=== PATIENT | male | born 1965 | race Caucasian/White ===

== ENCOUNTER 2017-03-18 09:12 | Observation (INO) | payer OTHER ==
[~2017-03-18] VITALS: Ht 182.9 cm; Wt 102.9 kg
[~2017-03-18 09:12] MED LIST: CEPH500C3 PO; DICL-86 PO; TYLE3 PO; Z.0.NO CURRENT MEDS
[2017-03-18] MEDS ORDERED: ASPI-516 PO (10:05)
[2017-03-18] MEDS ORDERED: METO25TA3 PO (10:22)
[2017-03-18] MEDS ORDERED: ATOR40TA16 PO (10:25)
[2017-03-18] MEDS ORDERED: LISI-519 PO (10:25)
[2017-03-18] MEDS ORDERED: PRAS10TA PO (10:25)
[2017-03-18] MEDS ORDERED: METOPROLOL TARTRATE 25 MG TAB PO PRN (11:00)
[2017-03-18] MEDS ORDERED: LACTATED RINGER'S 1000 ML IV PRN (11:00)
[2017-03-18] MEDS ORDERED: POVIDONE IODINE 5% (ANTISEPSIS KIT) 4 APPLICATIONS EACH NARE PRN (11:00)
[2017-03-18] MEDS ORDERED: INSULIN HUMAN REGULAR 1,000 UNITS/10 ML VIAL SQ PRN (11:00)
[2017-03-18] MEDS ORDERED: CHLORHEXIDINE GLUCONATE 2 % 1 PACK (2 CLOTHS) TOPICAL PRN (11:00)
[2017-03-18] MEDS ORDERED: SODIUM CHLORID 0.9% 500 ML IV PRN (11:00)
[2017-03-18 11:08] LABS: AUTOMATED NEUTROPHIL # 3.9 TH/MM3 (1.8-7.7); BASOPHIL % 0.7 % (0.0-2.0); EOSINOPHIL # 0.1 TH/MM3 (0-0.4); EOSINOPHIL % 1.6 % (0.0-4.0); HEMATOCRIT 44.4 % (39.0-51.0); HEMO FLAGS DIFF FINAL; LYMPH % 29.7 % (9.0-44.0); LYMPHOCYTE # 1.9 TH/MM3 (1.0-4.8); MEAN CELL VOLUME 92.3 FL (80.0-100.0); MEAN CORPUSCULAR HGB CONC 34.6 % (32.0-36.0); PLATELET COUNT 168 TH/MM3 (150-450); RED BLOOD COUNT 4.82 MIL/MM3 (4.50-5.90); RED CELL DISTRIBUTION WIDTH 13.2 % (11.6-17.2); WHITE BLOOD COUNT 6.2 TH/MM3 (4.0-11.0)
[2017-03-18 11:17] LABS: APTT (PATIENT) 29.2 SEC (24.3-30.1); PROTHROMBIN TIME - PATIENT 10.7 SEC (9.8-11.6)
[2017-03-18 11:22] LABS: ALT (GPT) 31 U/L (12-78); ANION GAP 7 MEQ/L (5-15); AST (GOT) 17 U/L (15-37); BICARBONATE 27.3 MEQ/L (21.0-32.0); BLOOD UREA NITROGEN 14 MG/DL (7-18); CHLORIDE 107 MEQ/L (98-107); GLOMERULAR FILTRATION RATE 89 ML/MIN (>89); POTASSIUM 3.8 MEQ/L (3.5-5.1); SODIUM (NA) 141 MEQ/L (136-145)
[2017-03-18 11:24] LABS: ALKALINE PHOSPHATASE 100 U/L (45-117); TOTAL BILIRUBIN ADULT 0.4 MG/DL (0.2-1.0)
[2017-03-18] MEDS ORDERED: hydrALAZINE HCL 20 MG/ML VIAL IV ONE (12:00)
[2017-03-18] MEDS ORDERED: DEXAMETHASONE SOD PHOS 4 MG/ML VIAL IV ONE ×2 (12:00)
[2017-03-18] MEDS ORDERED: ceFAZolin INJ 1,000 MG VIAL IV ONE (12:00)
[2017-03-18] MEDS ORDERED: MIDAZOLAM HCL 2 MG/2 ML VIAL IV ONE ×2 (12:00)
[2017-03-18] MEDS ORDERED: ONDANSETRON HCL 4 MG/2 ML VIAL IV PUSH ONE ×2 (12:00)
[2017-03-18] MEDS ORDERED: MORPHINE SULFATE 4 MG/ML INJ IV ONE ×2 (12:00)
[2017-03-18] MEDS ORDERED: GLYCOPYRROLATE 1 MG/5 ML SYRINGE IV PUSH ONE ×2 (12:00)
[2017-03-18] MEDS ORDERED: LACTATED RINGER'S 1000 ML INJ 2,000 ML IV ONE (12:00)
[2017-03-18] MEDS ORDERED: ePHEDrine/NS 25 MG/5 ML SYR IV ONE ×2 (12:00)
[2017-03-18] MEDS ORDERED: NEOSTIGMINE 3 MG/3 ML SYR IV ONE ×2 (12:00)
[2017-03-18] MEDS ORDERED: LABETALOL HCL 100 MG/20 ML VIAL IV ONE (12:00)
[2017-03-18] MEDS ORDERED: LIDOCAINE HCL 1% PF 5 ML AMPULE OTHER ONE ×2 (12:00)
[2017-03-18] MEDS ORDERED: ROCURONIUM INJ 50 MG/5 ML VIAL IV ONE (12:00)
[2017-03-18] MEDS ORDERED: STERILE WATER FOR INJECTION 20 ML VIAL IV ONE (12:00)
[2017-03-18] MEDS ORDERED: PROPOFOL 200 MG/20 ML AMP IV ONE ×2 (12:00)
[2017-03-18] MEDS ORDERED: LACTATED RINGER'S 1000 ML INJ 1,000 ML IV ONE (12:00)
[2017-03-18] MEDS ORDERED: ROCURONIUM INJ 50 MG/5 ML SYRINGE IV PUSH ONE (12:00)
[2017-03-18] MEDS ORDERED: BUPIVACAINE/EPINEPHRINE 0.5% 50 ML VIAL ONE (12:21)
[2017-03-18] MEDS ORDERED: ceFAZolin 2 GM PREMIX 50 ML IV ONE (14:40)
[2017-03-18] MEDS ORDERED: DO NOT ADM ANY ANTICOAGULANT DRUGS PRN (14:48)
[2017-03-18] MEDS ORDERED: *morphine SULFATE 8 MG/ML PERIprocedure ONLY ONE ×4 (14:57→16:37)
[2017-03-18] MEDS ORDERED: NALOXONE HCL 0.4 MG/ML AMP IV PUSH PRN (15:00)
[2017-03-18] MEDS ORDERED: Post-op Orders (for Pharmacy) MISC XX ONE (15:00)
[2017-03-18] MEDS ORDERED: SODIUM CHLORIDE 0.9% FLUSH 10 ML FLUSH IV FLUSH PRN (15:00)
[2017-03-18] MEDS ORDERED: ONDANSETRON HCL 4 MG/2 ML VIAL IV PUSH PRN (15:00)
[2017-03-18] MEDS ORDERED: MORPHINE SULFATE 4 MG/ML INJ IV PUSH PRN (15:00)
--- NOTE | 2017-03-18 15:14 | EKG ---
Date Performed: 03/18/2017 Time Performed: 09:31:19 PTAGE: 52 years EKG: SINUS BRADYCARDIA WITH FIRST DEGREE AV BLOCK MODERATE INTRAVENTRICULAR CONDUCTION DELAY ST ELEVATION, PROBABLY EARLY REPOLARIZATION ABNORMAL ECG PREVIOUS TRACING : 10/15/2008 18.19 Compared to the previous tracing rate slower DOCTOR: Edgar Soto Interpretating Date/Time 03/18/2017 15:12:57
[2017-03-18 17:33] VITALS: BP 154/74; PULSE 78; RESP 18; TEMP 97; O2SAT 97
[2017-03-18] MEDS: oxyCODONE/ACETAMINOPHEN 5 MG/325 MG TAB PO PRN ×2 (18:10→22:39)
[2017-03-18] MEDS: DOCUSATE SODIUM 100 MG CAP PO SCH (20:13)
[2017-03-18] MEDS: METOPROLOL TARTRATE 25 MG TAB PO SCH (20:13)
[2017-03-18] MEDS: SODIUM CHLORIDE 0.9% FLUSH 10 ML FLUSH IV FLUSH SCH (20:13)
[2017-03-18] MEDS: FAMOTIDINE 20 MG TAB PO SCH (20:13)
[2017-03-18 20:35] VITALS: BP 141/87; PULSE 81; RESP 17; TEMP 96.7; O2SAT 97
[2017-03-18] MEDS ORDERED: ATORVASTATIN 40 MG TAB PO SCH (21:00)
[2017-03-19 00:16] VITALS: BP 135/80; PULSE 79; RESP 18; TEMP 97.5; O2SAT 95
[2017-03-19] MEDS: oxyCODONE/ACETAMINOPHEN 5 MG/325 MG TAB PO PRN ×2 (03:58→10:39)
[2017-03-19 04:20] VITALS: BP 138/82; PULSE 74; RESP 17; TEMP 97.6; O2SAT 96
[2017-03-19 05:47] LABS: AUTOMATED NEUTROPHIL # 9.1 TH/MM3 (1.8-7.7); BASOPHIL % 0.2 % (0.0-2.0); EOSINOPHIL % 0.1 % (0.0-4.0); HEMATOCRIT 43.3 % (39.0-51.0); HEMO FLAGS DIFF FINAL; LYMPH % 13.4 % (9.0-44.0); LYMPHOCYTE # 1.5 TH/MM3 (1.0-4.8); MEAN CELL VOLUME 92.7 FL (80.0-100.0); MEAN CORPUSCULAR HEMOGLOBIN 31.6 PG (27.0-34.0); MEAN CORPUSCULAR HGB CONC 34.1 % (32.0-36.0); MONO % 6.2 % (0.0-8.0); NEUT % 80.1 % (16.0-70.0); PLATELET COUNT 184 TH/MM3 (150-450); RED BLOOD COUNT 4.67 MIL/MM3 (4.50-5.90); RED CELL DISTRIBUTION WIDTH 13.4 % (11.6-17.2); WHITE BLOOD COUNT 11.4 TH/MM3 (4.0-11.0)
[2017-03-19 06:34] LABS: BICARBONATE 27.7 MEQ/L (21.0-32.0); INDIRECT BILIRUBIN 0.4 MG/DL (0.0-0.8); POTASSIUM 4.5 MEQ/L (3.5-5.1); TOTAL BILIRUBIN ADULT 0.6 MG/DL (0.2-1.0)
[2017-03-19 08:00] VITALS: BP 128/72; PULSE 55; RESP 18; TEMP 96.2; O2SAT 99
--- NOTE | 2017-03-19 08:50 | MP ---
cc: IMELDA CASTLE MD DATE OF SURGERY 03/18/2017 PREOPERATIVE DIAGNOSIS Acute calculous cholecystitis, cholelithiasis and repeat biliary colic. POSTOPERATIVE DIAGNOSIS Acute calculous cholecystitis, cholelithiasis and repeat biliary colic. OPERATIVE PROCEDURE Laparoscopic cholecystectomy. SURGEON MD Clara ANESTHESIA General. ESTIMATED BLOOD LOSS 100 cc DESCRIPTION OF PROCEDURE The patient is prepped and draped in the usual fashion and a supraumbilical incision made under direct vision. Lenny cannula is placed and the patient positioned in reverse Trendelenburg with a tilt. Under direct vision of the 0-degree camera lens, a subxiphoid and two right upper quadrant ports were placed and then abdomen visualized in quadrants. The patient has a fair amount of fat in the abdomen but no other abnormalities. The gallbladder is stuck to some omentum which is taken down and then gallbladder is grasped with alligator clamps and elevated, very carefully the gallbladder is from the inferior portion of plate in order to visualize cystic duct and cystic artery. Carefully these are dissected with [place] dissector and then triple ligated and divided. The gallbladder is taken off the liver bed with spatula cautery instrument. It should be noted the gallbladder is partially intrahepatic which causes some oozing due to the fact that the patient is also on aspirin because of his coronary stents. Finally the gallbladder is from the liver and placed in an EndoCatch bag, delivered through the subumbilical incision. The area is irrigated with copious amounts of saline, meticulous hemostasis obtained and, in the face of the patient's aspirin use, a 7 flat ADRIEN drain is placed sub-hepatic. The area is irrigated and examined once more, then instruments withdrawn. Incisions were closed with 0 Vicryl and 4-0 subcuticular Monocryl. The patient tolerated the procedure well. Imelda MARTIN/EWELINA /2:58 PM /8:39 AM
[2017-03-19] MEDS: DOCUSATE SODIUM 100 MG CAP PO SCH (08:56)
[2017-03-19] MEDS: METOPROLOL TARTRATE 25 MG TAB PO SCH (08:56)
[2017-03-19] MEDS: FAMOTIDINE 20 MG TAB PO SCH (08:56)
[2017-03-19] MEDS ORDERED: LISINOPRIL 5 MG TAB PO SCH (09:00)
[2017-03-19] MEDS ORDERED: PRASUGREL 10 MG TAB PO SCH (09:00)
[2017-03-19] MEDS ORDERED: ASPIRIN 81 MG CHEW TAB PO SCH (09:00)
[2017-03-19] MEDS: SODIUM CHLORIDE 0.9% FLUSH 10 ML FLUSH IV FLUSH SCH (09:00)
[2017-03-19] MEDS ORDERED: OXYC1TAB63 PO (10:21)
== END 2017-03-19 11:06 | disposition home or self-care (01) ==
LOC: HSDC 09:12 → HSDI 14:58 → INTOOBSV 14:58 → N06B 17:11
PROVIDERS: ADMIT Surgery; ATTEND Surgery
DX: K80.00 Calculus of gallbladder with acute cholecystitis without obstruction (principal); I10 Essential (primary) hypertension
CPT/HCPCS: 00790; 47562; 80048; 80053; 80076; 85025; 85610; 85730; 88304; 93005; G0378; J0360; J0690; J1100; J2250; J2270; J2405; J2710; J3010; J7120